=== PATIENT | male | born 1980 | race Caucasian/White ===

== ENCOUNTER 2018-11-20 20:02 | Emergency (ER) | payer OTHER ==
[2018-11-20 20:16] VITALS: RESP 18; TEMP 97.9
[2018-11-20] MEDS ORDERED: LIDOCAINE 1% INJ 10MG/ML (20 ML MDV) SQ ONE (20:31)
[2018-11-20] MEDS ORDERED: KETOROLAC 30 MG/ML 1 ML VIAL IM STA (20:31)
[2018-11-20] MEDS ORDERED: HYDROcodone/APAP 5-325MG 1 EACH TAB PO STA (20:31)
--- NOTE | 2018-11-20 20:49 | XR ---
EXAMINATION TYPE: XR finger RT DATE OF EXAM: 11/20/2018 COMPARISON: NONE HISTORY: Laceration TECHNIQUE: 3 views FINDINGS: There is some soft tissue deformity at the DIP joint of the ring finger consistent with lac eration. I see no fracture. There is no evidence of a foreign body. IMPRESSION: Laceration deformity. No fracture.
[2018-11-20] MEDS ORDERED: DIPH,PERTUS(ACELL)TETVAC-LF 0.5 ML VIAL IM ONE (21:22)
[2018-11-20] MEDS ORDERED: CEPHALEXIN 500MG STARTER PACK 4 CAP BTL PO STA (21:36)
[2018-11-20] MEDS ORDERED: IBUPROFEN 600 MG STARTER PACK 4 TAB BTL PO STA (21:36)
--- NOTE | 2018-11-20 21:38 | ED ---
Wound/Laceration HPI - General Source: patient Mode of arrival: ambulatory Limitations: no limitations <Liliana Trotter - Last Filed: 11/20/18 21:58> <Ariadne Honeycutt - Last Filed: 11/20/18 23:17> - General Chief Complaint: Wound/Laceration Stated Complaint: Finger Lac Time Seen by Provider: 11/20/18 20:12 - History of Present Illness Initial Comments: 38-year-old male patient presents to the emergency department today for evaluation of laceration to the right fourth digit on the right upper extremity. Patient states about 30 minutes prior to arrival he was standing up on a bucket trying to remove a sign from the wall when he lost his balance and fell getting his finger stuck behind the sign. Patient states he was hanging from the sign by his finger, but was able to get it unstuck. This did cause a laceration and he felt like his finger dislocated. Patient states he put his finger back in place. He is unsure if it is broken. He denies any numbness or tingling to the finger. He is unsure when his last tetanus vaccine was given. Patient denies any use of anticoagulant medications. Patient denies any other injuries from the fall. Patient denies any headache, neck pain, back pain, chest pain, shortness of breath, dizziness, weakness, abdominal pain, nausea, vomiting, or difficulties with bowel movements or urination. (Liliana Trotter) - Related Data Previous Rx's Medication Instructions Recorded Cephalexin [Keflex] 500 mg PO Q6H #28 cap 11/20/18 Ibuprofen [Motrin] 600 mg PO Q8HR PRN #30 tab 11/20/18 Allergies Allergy/AdvReac Type Severity Reaction Status Date / Time No Known Allergies Allergy Verified 11/20/18 20:21 Review of Systems ROS Other: All systems not noted in ROS Statement are negative. <Liliana Trotter - Last Filed: 11/20/18 21:58> ROS Other: All systems not noted in ROS Statement are negative. <Ariadne Honeycutt - Last Filed: 11/20/18 23:17> ROS Statement: Those systems with pertinent positive or pertinent negative responses have been documented in the HPI. Past Medical History Past Medical History: Seizure Disorder History of Any Multi-Drug Resistant Organisms: None Reported Past Surgical History: No Surgical Hx Reported Past Psychological History: No Psychological Hx Reported Smoking Status: Never smoker Past Alcohol Use History: None Reported Past Drug Use History: None Reported <Liliana Trotter M - Last Filed: 11/20/18 21:58> General Exam Limitations: no limitations General appearance: alert, other (Physical well-developed, well-nourished adult male patient in no acute distress. Vital signs upon presentation are temperatu re 97.9F, pulse 83, respirations 18, blood pressure 130/86, pulse ox 100% on room air.) Respiratory exam: Present: normal lung sounds bilaterally. Absent: respiratory distress, wheezes, rales, rhonchi, stridor Cardiovascular Exam: Present: regular rate, normal rhythm, normal heart sounds. Absent: systolic murmur, diastolic murmur, rubs, gallop, clicks Extremities exam: Present: full ROM, normal capillary refill, other (There are lacerations noted to the medial and lateral aspects of the right fourth finger over the middle phalanx. Medial laceration is 2 cm, lateral laceration is 2cm. There is active bleeding. Skin is otherwise pink, warm, dry. Cap refills less than 3 seconds. Radial pulses 2+ and equal bilaterally. No deformity noted to the finger.). Absent: normal inspection, tenderness, pedal edema, joint swelling, calf tenderness Neurological exam: Present: alert, oriented X3, CN II-XII intact Psychiatric exam: Present: normal affect, normal mood Skin exam: Present: warm, dry, intact, normal color. Absent: rash <Liliana Trotter M - Last Filed: 11/20/18 21:58> Course Vital Signs 11/20/18 11/20/18 20:08 22:03 Temperature 97.9 F Pulse Rate 83 70 Respiratory 18 18 Rate Blood Pressure 130/86 130/89 O2 Sat by Pulse 100 99 Oximetry Procedures - Laceration Laceration #1 Consent Obtained: verbal consent Indication: laceration Site: other (Medial right fourth digit upper extremity) Size (cm): 2 Description: flap Depth: simple, single layer Anesthetic Used: lidocaine 1% Anesthesia Technique: nerve block Amount (mls): 6 Pre-repair: wound explored, irrigated extensively Type of Sutures: nylon Size of Sutures: 5-0 Number of Sutures: 4 Technique: simple, interrupted Patient Tolerated Procedure: well, no complications Laceration #2 Consent Obtained: verbal consent Indication: laceration Site: other (lateral fourth digit right upper extremity) Size (cm): 2 Description: flap Depth: simple, single layer Pre-repair: wound explored, irrigated extensively Type of Sutures: vicryl Size of Sutures: 5-0 Number of Sutures: 3 Technique: simple, interrupted Patient Tolerated Procedure: well, no complications <Liliana Trotter - Last Filed: 11/20/18 21:58> Medical Decision Making - Radiology Data Radiology results: report reviewed, image reviewed <Liliana Trotter - Last Filed: 11/20/18 21:58> <Ariadne Honeycutt - Last Filed: 11/20/18 23:17> - Medical Decision Making 38-year-old male patient presented to the emergency department today for evaluation of laceration to the right ring finger. Physical examination did reveal two lacerations one to the medial and to the lateral aspect, both measuring about 2 cm. Lacerations were repaired as documented. X-ray was obtained and showed no acute fractures or dislocations. Patient is unsure when his last tetanus vaccine was given but declined receiving this medication here, he does agree to receive this within 3 days. Patient will be started on Keflex as the wound was caused by a dirty metal sign. He is given ibuprofen for pain control. He is educated regarding wound care and signs or symptoms of infection. He is instructed to return in 7 days for suture removal. He is instructed to follow-up with his primary care physician for recheck in 1-2 days. Return parameters were discussed in detail. He verbalizes understanding and agrees with this plan. (Liliana Trotter) I was available for consultation in the emergency department. The history and physical exam were done by the Midlevel Provider. Medical decision making was done by the Midlevel Provider. I have reviewed the chart, however was not consulted specifically or made aware of this patient by the above midlevel provider and did not personally evaluate, interact with, or disposition this patient on the day of their visit Chart was dictated using [employer] dictation software. Attempts were made to correct any dictation errors however some typographical errors may persist. (Ariadne Honeycutt) - Radiology Data 3 views of the right ring finger obtained. Report was reviewed in its entirety. Impression by Dr. Baca shows laceration deformity. No fracture. (Liliana Trotter) Disposition Is patient prescribed a controlled substance at d/c from ED?: No Time of Disposition: 21:38 <Liliana Trotter - Last Filed: 11/20/18 21:58> <Ariadne Honeycutt - Last Filed: 11/20/18 23:17> Clinical Impression: Finger laceration Disposition: HOME SELF-CARE Condition: Good Instructions (If sedation given, give patient instructions): Finger Laceration (ED) Additional Instructions: Return in 7 days to have stitches removed. Keep wound clean and dry. Wash twice daily with warm water and antibacterial soap. Complete antibiotic prescription in full. Monitor for signs or symptoms of infection including but not limited to redness, swelling, drainage of pus, fever, or chills. Follow-up with your primary care physician for recheck in 1-2 days. Return to the emergency department for any new, worsening, or concerning symptoms. Prescriptions: Cephalexin [Keflex] 500 mg PO Q6H #28 cap Ibuprofen [Motrin] 600 mg PO Q8HR PRN #30 tab PRN Reason: Pain Referrals: None,Stated [Primary Care Provider] - 1-2 days
[2018-11-20 22:04] VITALS: BP 130/89; PULSE 70
== END 2018-11-20 22:03 | disposition home or self-care (01) ==
LOC: EC 20:02
DX: S61.214A Laceration without foreign body of right ring finger without damage to nail, initial encounter (principal); W01.198A Fall on same level from slipping, tripping and stumbling with subsequent striking against other object, initial encounter
CPT/HCPCS: 73140; 99283; 96372; 12002; J2001; J1885